=== PATIENT | female | born 1980 | race Caucasian/White ===

== ENCOUNTER 2021-04-21 21:23 | Emergency (ER) | payer OTHER ==
[~2021-04-21] VITALS: Ht 152.4 cm; Wt 59.1 kg
--- NOTE | 2021-04-21 21:39 | PHYS DOC ---
General Adult HPI: HPI: Patient is a 40-year-old female presenting from EMS for drug abuse. Patient was out of town for the weekend visiting her boyfriend and friends, admits she drank numerous alcoholic beverages, smoked weed, and tried cocaine for the first time earlier this morning. Reports she traveled back home and on arrival to her home, she did not have the keys to get in. She lives at home here in [facility] with a caregiver and she has slight mental retardation and has someone who lives in the home with her at all times, they were away from the house this evening on arrival time. As such, patient got concerned and walked over to next-door neighbors. They were concerned due to intoxicated state of patient and called EMS who subsequently brought patient here for evaluation. On arrival, patient has no acute complaints. She admits she has been off her psychiatric medications for past 2 days because she has been out of town but plans to resume them on getting home. She also admits she uses alcohol and marijuana frequently, is never done cocaine in the past but admits she was peer pressured into the this morning. Denies any fever, vision changes, chest pain, ripping or tearing sensation in chest, shortness of breath, abdominal pain, bladder or bowel incontinence, changes in motor or sensory neuro function, no trauma or falls. She is fully vaccinated against COVID-19. She is refusing further work- up in ER setting and just wants to go home Review of Systems: Review of Systems: Fourteen body systems of review of systems have been reviewed. See HPI for per tinent positives and negative responses, other pratt all other systems are negative, non-pertinent or non-contributory Heart Score: C/O Chest Pain: No Risk Factors: Risk Factors: DM, Current or recent (<one month) smoker, HTN, HLP, family history of CAD, obesity. Risk Scores: Score 0 - 3: 2.5% MACE over next 6 weeks - Discharge Home Score 4 - 6: 20.3% MACE over next 6 weeks - Admit for Clinical Observation Score 7 - 10: 72.7% MACE over next 6 weeks - Early Invasive Strategies Physical Exam: PE: Constitutional: Well developed, well nourished, no acute distress, non-toxic appearance. HENT: Normocephalic, atraumatic, bilateral external ears normal, oropharynx moist, no oral exudates, nose normal. Eyes: PERRLA, EOMI, conjunctiva normal, no discharge. Neck: Normal range of motion, no tenderness, supple, no stridor. Cardiovascular: Heart rate regular, sinus rhythm, no murmurs rubs or gallops Lungs & Thorax: Bilateral breath sounds clear to auscultation Abdomen: Bowel sounds normal, soft, no tenderness, no masses, no pulsatile masses. Nonsurgical abdomen, no peritoneal signs Skin: Warm, dry, no erythema, no rash. Back: No tenderness, no CVA tenderness. Extremities: No tenderness, no cyanosis, no clubbing, ROM intact, no edema. Neurologic: Alert and oriented X 3, grossly normal motor & sensory function, no focal deficits noted. Psychologic: Affect normal, judgement normal, mood normal. EKG: EKG: [] Radiology/Procedures: Radiology/Procedures: [] Course & Med Decision Making: Course & Med Decision Making Pertinent Labs and Imaging studies reviewed. (See chart for details) [] Dragon Disclaimer: Dragon Disclaimer: This electronic medical record was generated, in whole or in part, using a voice recognition dictation system. Departure Departure Impression: Primary Impression: Alcohol abuse Additional Impressions: Marijuana abuse Cocaine abuse Disposition: HOME / SELF CARE / HOMELESS Condition: STABLE Additional Instructions: As discussed prior to ER departure, you were seen for illicit drug abuse. You admitted to using alcohol, marijuana and cocaine prior to arrival. Your vitals and physical exam were fine; however, exposure to such illicit drugs could have numerous short and long-term consequences. It was recommended that further diagnostic work-up be performed but he deferred and wanted to go home. As such, illicit drug abuse in place primary care follow-up is advised for ER visit today. If concerning signs or symptoms present prior to outpatient follow-up arise, please do not hesitate to come back for repeat evaluation. It was a pleasure to take care of you and I wish you the best going forward ESTELLA BARKLEY DO Apr 21, 2021 21:39
[2021-04-21 21:57] VITALS: BP 127/60
== END 2021-04-21 22:30 | disposition home or self-care (01) ==
LOC: ER 21:23
DX: F12.10 Cannabis abuse, uncomplicated (principal); F14.10 Cocaine abuse, uncomplicated; F10.10 Alcohol abuse, uncomplicated; Y90.9 Presence of alcohol in blood, level not specified
CPT/HCPCS: 99283

== ENCOUNTER 2021-10-24 19:04 | Inpatient (IN) | payer OTHER ==
[~2021-10-24] VITALS: Ht 152.4 cm; Wt 44.0 kg
[2021-10-24 20:08] LABS: BASO % 0 % (0-3); EOS # 0.1 x10^3/uL (0.0-0.7); EOS % 1 % (0-3); HEMATOCRIT 37.9 % (36.0-47.0); HEMOGLOBIN 12.5 g/dL (12.0-15.5); LYMPH # 1.9 x10^3/uL (1.0-4.8); LYMPH % 26 % (24-48); MEAN CORPUSCULAR HEMOGLOBIN 31 pg (25-35); MEAN CORPUSCULAR HGB CONC 33 g/dL (31-37); MEAN CORPUSCULAR VOLUME 92 fL (79-100); MONO # 0.7 x10^3/uL (0.0-1.1); MONO % 9 % (0-9); NEUT # 4.9 x10^3/uL (1.8-7.7); NEUT % 65 % (31-73); PLATELET COUNT 351 x10^3/uL (140-400); WHITE BLOOD COUNT 7.6 x10^3/uL (4.0-11.0)
[2021-10-24 20:20] LABS: BACTERIA,URINE 0 /HPF (0-FEW); RBC,URINE 0 /HPF (0-2)
[2021-10-24 20:23] LABS: CALCIUM 8.9 mg/dL (8.5-10.1); CREATININE 0.7 mg/dL (0.6-1.0); GFR 93.2; POTASSIUM 4.3 mmol/L (3.5-5.1)
[2021-10-24 20:24] LABS: BARBITURATES NEG (NEG); BENZODIAZEPINES NEG (NEG); CANNABINOIDS NEG (NEG); COCAINE NEG (NEG); METHADONE NEG (NEG); OPIATES NEG (NEG); PHENCYCLIDINE NEG (NEG)
[2021-10-24 20:26] LABS: ACETAMIN < 2 mcg/ml (10-30); ETHANOL < 10 mg/dL (0-10); SALIC 3.8 mg/dL (2.8-20.0)
--- NOTE | 2021-10-24 20:29 | EKG ---
[facility] [address] [place] [address] Test Date: 2021-10-24 Test Time: 20:01:04 Pat Name: DEV MARTÍNEZ Department: Room: Gender: F Network Design Architect: : 1980 Requested By: MELINDA GARCIA Order Number: [id number] Reading MD: Dejuan Bello Measurements Intervals [place] Rate: 95 P: 40 IN: 128 QRS: 59 QRSD: 92 T: 51 QT: 358 QTc: 453 Interpretive Statements SINUS RHYTHM Electronically Signed On 10-26-2021 21:25:29 CDT by Dejuan Bello
[2021-10-24 20:30] LABS: ALBUMIN 3.7 g/dL (3.4-5.0); MAGNESIUM 1.6 mg/dL (1.8-2.4); TOTAL BILIRUBIN 0.2 mg/dL (0.2-1.0); TOTAL PROTEIN 7.3 g/dL (6.4-8.2)
[2021-10-24 20:31] LABS: AMPHETAMINE/METHAMPHETAMINE NEG (NEG)
[2021-10-24] MEDS ORDERED: cefTRIAXone IV Push 1 GM VIAL. IVP ONE (21:00)
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
[2021-10-24] MEDS ORDERED: ACETAMINOPHEN 325 MG TABLET. PO PRN (23:45)
[2021-10-25 00:50] VITALS: BP 114/76
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
--- NOTE | 2021-10-25 02:22 | NUR ---
Unable to complete history and physical. Patient refusing to answer questions or be assessed. "I just want some Melatonin, turn off all the lights, turn up the thermostat and go to sleep." No saline lock apparent, ER notes a line placed.
[2021-10-25 07:00] VITALS: BP_SYST 107; BP_SYST 108; BP_DIAS 72; BP_DIAS 74
[2021-10-25] MEDS: LACTOBACILLUS RHAMNOSUS GG 1 CAPSULE. PO SCH ×2 (08:47→21:41)
[2021-10-25] MEDS: CEPHALEXIN 250 MG CAPSULE. PO SCH ×2 (08:48→21:42)
[2021-10-25] MEDS ORDERED: FLUCONAZOLE 100 MG TABLET. PO ONE (09:45)
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
[2021-10-25] MEDS: NICOTINE POLACRILEX 2MG GUM PACKAGE of 12. BC PRN (10:32)
[2021-10-25 11:00] VITALS: BP 110/69
[2021-10-25 15:00] VITALS: BP 115/73
[2021-10-25 19:00] VITALS: BP 90/62
[2021-10-25 23:00] VITALS: BP 93/62
[2021-10-26 07:00] VITALS: BP 108/76
[2021-10-26] MEDS: LACTOBACILLUS RHAMNOSUS GG 1 CAPSULE. PO SCH ×2 (08:45→20:18)
[2021-10-26] MEDS: CEPHALEXIN 250 MG CAPSULE. PO SCH ×2 (08:45→20:18)
[2021-10-26 10:42] VITALS: BP 113/72
[2021-10-26 13:10] LABS: U PREG PATIENT NEGATIVE (NEG)
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
[2021-10-26 15:00] VITALS: BP 110/70
[2021-10-26] MEDS ORDERED: ONDANSETRON ODT 4 MG TAB.RAPDIS. PO PRN (17:45)
[2021-10-26] MEDS ORDERED: ACETAMINOPHEN 325 MG TABLET. PO PRN (17:45)
[2021-10-26 18:54] VITALS: BP 114/72
[2021-10-26 23:00] VITALS: BP 91/51
[2021-10-27] MEDS: CEPHALEXIN 250 MG CAPSULE. PO SCH ×2 (09:17→22:14)
[2021-10-27] MEDS: LACTOBACILLUS RHAMNOSUS GG 1 CAPSULE. PO SCH ×2 (09:17→22:14)
[2021-10-27 10:39] VITALS: BP 138/100
[2021-10-27 10:42] VITALS: BP 95/51
[2021-10-27 14:45] VITALS: BP 107/66
[2021-10-27] MEDS: NICOTINE POLACRILEX 2MG GUM PACKAGE of 12. BC PRN (15:47)
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
[2021-10-27 19:05] VITALS: BP 91/64
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
[2021-10-27 23:00] VITALS: BP 98/57
[2021-10-28 03:00] VITALS: BP 98/60
[2021-10-28 07:00] VITALS: BP 95/62
[2021-10-28] MEDS: PSYLLIUM HUSK (SUGAR FREE) 1 PKT PACKET PO SCH (10:38)
[2021-10-28] MEDS: LACTOBACILLUS RHAMNOSUS GG 1 CAPSULE. PO SCH ×2 (10:39→21:41)
[2021-10-28] MEDS: CEPHALEXIN 250 MG CAPSULE. PO SCH ×2 (10:39→21:41)
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
[2021-10-28 15:00] VITALS: BP 129/78
[2021-10-28] MEDS: NICOTINE POLACRILEX 2MG GUM PACKAGE of 12. BC PRN (18:37)
[2021-10-28 19:00] VITALS: BP 91/57
[2021-10-29] MEDS ORDERED: LEVO100T5 PO (05:39)
[2021-10-29] MEDS ORDERED: VIT1TABL65 PO (05:39)
[2021-10-29] MEDS ORDERED: NALT50TA PO (05:39)
[2021-10-29] MEDS ORDERED: NICO1PAT25 TP (05:39)
[2021-10-29] MEDS ORDERED: ESCITALOPRAM OX20 MG PO (05:39)
[2021-10-29] MEDS ORDERED: CALC-74 PO (05:39)
[2021-10-29] MEDS ORDERED: SENN1TAB99 PO (05:39)
[2021-10-29] MEDS ORDERED: ALEN70TA71 PO (05:39)
[2021-10-29] MEDS ORDERED: QUET100T4 PO (05:39)
[2021-10-29] MEDS ORDERED: FLUT16SP NS (05:39)
[2021-10-29] MEDS ORDERED: CALC-157 PO (05:39)
[2021-10-29] MEDS ORDERED: METH-561 PO (05:39)
[2021-10-29] MEDS ORDERED: MELA5TAB20 PO (05:39)
[2021-10-29] MEDS ORDERED: MIRT7.5T8 PO (05:39)
[2021-10-29] MEDS ORDERED: ACET500T68 PO (05:39)
[2021-10-29] MEDS ORDERED: POLY2500 PO (05:39)
[2021-10-29] MEDS ORDERED: LORA5SOL43 PO (05:39)
[2021-10-29] MEDS: CEPHALEXIN 250 MG CAPSULE. PO SCH ×2 (10:17→21:17)
[2021-10-29] MEDS: PSYLLIUM HUSK (SUGAR FREE) 1 PKT PACKET PO SCH (10:18)
[2021-10-29] MEDS: LACTOBACILLUS RHAMNOSUS GG 1 CAPSULE. PO SCH ×2 (10:18→21:17)
[2021-10-29] MEDS: NICOTINE POLACRILEX 2MG GUM PACKAGE of 12. BC PRN (10:19)
[2021-10-29 10:22] VITALS: BP 120/73
--- NOTE | 2021-10-29 10:42 | NUR ---
SS following up with discharge planning. SS reviewed pt chart and discussed with pt RN. Pt is currently on room air. COVID19 negative. 1:1. Pt needing inpatient psych placement. SS contacted Gt from PAT team for clinical update and was notified that PAT team did acquire consents from pt's Guardian. SS was informed that pt will be involuntarily placed. PAT team currently awaiting [place] to complete state assessment for involuntary. PAT team to notify SS or program planner once completed. SS will continue to follow for discharge planning.
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
[2021-10-29 15:00] VITALS: BP 123/64
[2021-10-29 19:00] VITALS: BP 101/61
[2021-10-29 23:00] VITALS: BP 89/47
[2021-10-30 03:00] VITALS: BP 98/65
[2021-10-30 07:00] VITALS: BP 135/84
[2021-10-30] MEDS: LACTOBACILLUS RHAMNOSUS GG 1 CAPSULE. PO SCH ×2 (08:38→20:54)
[2021-10-30] MEDS: PSYLLIUM HUSK (SUGAR FREE) 1 PKT PACKET PO SCH (08:38)
[2021-10-30] MEDS: CEPHALEXIN 250 MG CAPSULE. PO SCH ×2 (08:38→20:54)
--- NOTE | 2021-10-30 09:56 | NUR ---
SS following up with discharge planning. SS reviewed pt chart and discussed with pt RN. Pt is currently on room air. COVID19 negative. 1:1. Pt requiring involuntary psych placement. Petition signed in court this morning. [facility] Assessment at 1300 today. Currently awaiting bed at [facility]. PAT team to contact SS when pt is able to discharge to facility. SS will continue to follow for discharge planning.
[2021-10-30 10:58] VITALS: BP 102/59
[2021-10-30 15:00] VITALS: BP 116/72
[2021-10-30 18:58] VITALS: BP 102/63
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
[2021-10-30 23:00] VITALS: BP 117/69
[2021-10-31 07:00] VITALS: BP 111/61
[2021-10-31] MEDS: PSYLLIUM HUSK (SUGAR FREE) 1 PKT PACKET PO SCH (08:40)
[2021-10-31] MEDS: LACTOBACILLUS RHAMNOSUS GG 1 CAPSULE. PO SCH (08:40)
[2021-10-31] MEDS: CEPHALEXIN 250 MG CAPSULE. PO SCH (08:40)
[2021-10-31 11:00] VITALS: BP 106/59
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
== END 2021-10-31 14:50 | disposition home or self-care (01) | DRG 690 ==
LOC: ER 19:04 → ED HOLD 22:08 → 5 NORTH 10-25 01:00
PROVIDERS: ADMIT Student in an Organized Health Care Education/Training Program; ATTEND Student in an Organized Health Care Education/Training Program
DX: N39.0 Urinary tract infection, site not specified (principal); F23 Brief psychotic disorder; R45.851 Suicidal ideations; F60.3 Borderline personality disorder; F79 Unspecified intellectual disabilities; F43.10 Post-traumatic stress disorder, unspecified; M81.0 Age-related osteoporosis without current pathological fracture; Z87.891 Personal history of nicotine dependence; Z20.822 Contact with and (suspected) exposure to COVID-19; Z88.8 Allergy status to other drugs, medicaments and biological substances; Z91.030 Bee allergy status
CPT/HCPCS: 36415; 80053; 80307; 80329; 81001; 81025; 83735; 84484; 85025; 87077; 87086; 87186; 87426; 93005; 96374; G0480; J0696; U0003; 99285-25; G0378